=== PATIENT | male | born 1945 | race African-American/Black ===

== ENCOUNTER 2016-12-04 11:18 | Emergency (ER) | payer SELFPAY ==
[2016-12-04] MEDS ORDERED: Dextrose 50% Abboject 50 ML SYRINGE ONE (11:47)
[2016-12-04 12:30] LABS: Prothrombin Time 13.9 SEC (12.0-14.7)
[2016-12-04 12:31] LABS: #Basophils 0.1 thou/uL (0.0-0.2); #Eosinphils 0.1 thou/uL (0.0-0.7); #Lymphocytes 2.9 thou/uL (1.20-3.40); #Monocytes 0.5 thou/uL (0.11-0.59); #Neutrophils 5.8 thou/uL (1.40-6.50); %Basophils 1.5 % (0.0-1.0); %Eosinophils 0.8 % (0.0-10.0); %Lymphocytes 30.9 % (21.0-51.0); %Monocytes 4.9 % (0.0-10.0); %Neutrophils 61.9 % (42.0-75.0); Hemoglobin 12.1 g/dL (14.0-18.0); Mean Corpuscular HGB CONC 31.1 g/dL (32.0-36.0); Mean Corpuscular Hemoglobin 26.7 pg (27.0-31.0); Mean Corpuscular Volume 85.7 fl (80.0-94.0); Mean Platelet Volume 11.1 fL (7.4-10.4); PTT 37.6 SEC (22.9-36.1); Platelet Count 201 thou/uL (130-400); RBC Distribution Width 13.4 % (11.5-14.5); Red Blood Cell (RBC) Count 4.54 mill/uL (4.70-6.10); White Blood Cell (WBC) Count 9.3 thou/uL (4.8-10.8)
[2016-12-04 12:34] LABS: Bilirubin Negative (Negative); Blood, Urine Trace (Negative); Clarity Clear (Clear); Glucose, Urine (Dipstick) 100 mg/dL (Negative); Leukocyte Negative (Negative); Nitrite Negative (Negative); Protein, Urine (Dipstick) 30 mg/dL (Neg-Trace); Urobilinogen 0.2 mg/dL (0.2-1.0); pH, Urine 5.5 (5.0-9.0)
[2016-12-04 12:40] LABS: Cocaine Metabolite Screen Not Detected (NotDetected); Methamphetamine Not Detected (NotDetected); Phencyclidine (PCP) Not Detected (NotDetected); THC/Cannabinoid Screen Not Detected (NotDetected)
--- NOTE | 2016-12-04 12:40 | RAD ---
PORTABLE CHEST: History: Mental status change. FINDINGS: Lungs are clear. Heart and mediastinum appear unremarkable. IMPRESSION: No acute findings. POS: [facility]
[2016-12-04 12:41] LABS: Amphetamine Not Detected (NotDetected); Barbiturates Screen Not Detected (NotDetected); Benzodiazepine Screen Not Detected (NotDetected); Medtox Control Line Valid? VALID (VALID); Methadone Not Detected (NotDetected); Opiate Screen Detected (NotDetected); Oxycodone Screen Not Detected (NotDetected); Tricyclic Screen Not Detected (NotDetected)
[2016-12-04 12:42] LABS: ALT (SGPT) 13 U/L (0-55); AST (SGOT) 24 U/L (5-34); Albumin 4.1 g/dL (3.4-4.8); Alkaline Phosphatase 80 U/L (40-150); Anion Gap 14 mmol/L (10-20); BUN (Urea Nitrogen) 34 mg/dL (8.4-25.7); Bilirubin, Total 0.3 mg/dL (0.2-1.2); CK (CPK) 372 U/L (30-200); Calc. Creatinine Clearance 0 mL/min (70-130); Calcium 9.5 mg/dL (7.8-10.44); Carbon Dioxide 25 mmol/L (23-31); Chloride 108 mmol/L (98-107); Estimated GFR-MDRD 43; Globulin 3.3 g/dL (2.4-3.5); Potassium 4.4 mmol/L (3.5-5.1); Protein, Total 7.4 g/dL (5.8-8.1); Sodium 143 mmol/L (136-145)
[2016-12-04 12:43] LABS: Bacteria/HPF Rare-Few HPF (None Seen); RBC/HPF 0-3 HPF (0-3); Squamous Epithelial 0-3 HPF (0-3); WBC/HPF 0-3 HPF (0-3)
[2016-12-04 12:44] LABS: Acetaminophen Less than 3.0 mcg/mL (10.0-30.0); Alcohol Less than 10 mg/dL (Less than 10); Salicylate Less than 5.0 mg/dL (15.0-30.0)
[2016-12-04 12:56] LABS: CKMB 4.4 ng/mL (0-6.6); Troponin I Less than 0.010 ng/mL (< 0.028)
[2016-12-04 12:59] LABS: Glucose 37 mg/dL (83-110)
== END 2016-12-04 17:30 | disposition home or self-care (01) ==
LOC: MADERS 11:18
DX: E11.649 Type 2 diabetes mellitus with hypoglycemia without coma (principal); E78.5 Hyperlipidemia, unspecified; E78.00 Pure hypercholesterolemia, unspecified; I10 Essential (primary) hypertension; Z79.4 Long term (current) use of insulin; Z79.899 Other long term (current) drug therapy
CPT/HCPCS: 36416; 71010; 80053; 80306; 80307; 81001; 82553; 83735; 83880; 84443; 84484; 85025; 85610; 85730; 87086; 93005; 96374; J1610

== ENCOUNTER 2020-07-04 16:07 | Emergency (ER) | payer MEDICARE, SELFPAY ==
[~2020-07-04 16:07] MED LIST: Sodium Chloride 0.9% 1,000 ML BAG ONE
[2020-07-04] MEDS ORDERED: Acetaminophen 500 MG TAB ONE (16:20)
[2020-07-04] MEDS ORDERED: cefTRIAXone\\ROCEPHIN 1 GM VIAL ONE (16:44)
[2020-07-04] MEDS ORDERED: Sodium Chloride 0.9% 100 ML ONE (16:44)
--- NOTE | 2020-07-04 16:58 | RAD ---
XR Chest 1 View Portable History: Dyspnea Comparison: Radiograph 2017 Findings: New bibasilar airspace opacities. Radiopaque material projects over the right neck, similar. Heart size within normal limits. Mild aort ic ectasia. No acute osseous abnormality. Impression: Multifocal bibasilar pneumonia. Follow-up after treatment recommended.
[2020-07-04 17:01] LABS: #Lymphocytes 1.4 thou/uL (1.20-3.40); #Monocytes 0.4 thou/uL (0.11-0.59); #Neutrophils 4.4 thou/uL (1.40-6.50); %Basophils 0.3 % (0.0-1.0); %Lymphocytes 23.2 % (21.0-51.0); %Monocytes 5.8 % (0.0-10.0); %Neutrophils 70.6 % (42.0-75.0); Hemoglobin 10.6 g/dL (14.0-18.0); Mean Corpuscular HGB CONC 30.8 g/dL (32.0-36.0); Mean Corpuscular Hemoglobin 26.1 pg (27.0-31.0); Mean Corpuscular Volume 84.8 fL (78.0-98.0); Mean Platelet Volume 9.3 fL (7.4-10.4); Platelet Count 197 thou/uL (130-400); RBC Distribution Width 12.6 % (11.5-14.5); Red Blood Cell (RBC) Count 4.06 mill/uL (4.70-6.10); White Blood Cell (WBC) Count 6.2 thou/uL (4.8-10.8)
[2020-07-04] MEDS ORDERED: Azithromycin 500 MG VIAL ONE (17:01)
[2020-07-04 17:17] LABS: ALT (SGPT) 13 U/L (8-55); AST (SGOT) 28 U/L (5-34); Albumin 3.3 g/dL (3.4-4.8); Alkaline Phosphatase 59 U/L (40-110); Anion Gap 19 mmol/L (10-20); BUN (Urea Nitrogen) 50 mg/dL (8.4-25.7); Bilirubin, Total 0.3 mg/dL (0.2-1.2); CK (CPK) 73 U/L (30-200); Calc. Creatinine Clearance 0 mL/min (70-130); Calcium 8.8 mg/dL (7.8-10.44); Carbon Dioxide 22 mmol/L (23-31); Chloride 108 mmol/L (98-107); Estimated GFR-MDRD 27; Globulin 3.7 g/dL (2.4-3.5); Glucose 205 mg/dL (83-110); Potassium 5.1 mmol/L (3.5-5.1); Sodium 144 mmol/L (136-145)
[2020-07-04 18:07] LABS: Bilirubin Negative (Negative); Blood, Urine Moderate (Negative); Glucose, Urine (Dipstick) Negative (Negative); Ketone, Urine Negative (Negative); Leukocyte Negative (Negative); Nitrite Negative (Negative); Protein, Urine (Dipstick) > or equal to 300 mg/dL (Neg-Trace); Urobilinogen 0.2 mg/dL (Less than 2); pH, Urine 5.5 (5.0-9.0)
[2020-07-04 18:10] LABS: Clarity Hazy (Clear)
[2020-07-04 18:14] LABS: Bacteria/HPF Rare-Few HPF (None Seen); RBC/HPF 0-3 HPF (0-3); Squamous Epithelial 0-3 HPF (0-3); WBC/HPF None Seen HPF (0-3)
== END 2020-07-04 19:00 | disposition short-term general hospital (02) ==
LOC: MADERS 16:07
DX: A41.89 Other specified sepsis (principal); U07.1 COVID-19; R65.20 Severe sepsis without septic shock; E78.5 Hyperlipidemia, unspecified; I10 Essential (primary) hypertension; E11.9 Type 2 diabetes mellitus without complications; E78.00 Pure hypercholesterolemia, unspecified; F17.210 Nicotine dependence, cigarettes, uncomplicated; Z79.4 Long term (current) use of insulin; Z87.442 Personal history of urinary calculi
CPT/HCPCS: 36415; 71045; 80053; 81003; 81015; 82550; 83605; 84484; 85025; 87040; 87086; 93005; 96365; 96367; J0456; J0696; J3490; J7050